=== PATIENT | female | born 1940 | race Caucasian/White ===

== ENCOUNTER 2019-07-07 07:08 | Emergency (ER) | payer MEDICARE ==
[~2019-07-07] VITALS: Ht 165.1 cm; Wt 75.0 kg
[2019-07-07 07:20] VITALS: BP 150/84
[2019-07-07] MEDS ORDERED: GLIM1TAB7 PO (07:26)
[2019-07-07] MEDS ORDERED: FAMO-79 PO (07:26)
[2019-07-07] MEDS ORDERED: ASPI-496 PO (07:26)
[2019-07-07] MEDS ORDERED: LOVA40TA2 PO (07:26)
[2019-07-07] MEDS ORDERED: BISA-49 PO (07:26)
[2019-07-07] MEDS ORDERED: SERT50TA28 PO (07:26)
[2019-07-07] MEDS ORDERED: ACET325T14 PO (07:26)
[2019-07-07] MEDS ORDERED: LEVO200T5 PO (07:26)
[2019-07-07] MEDS ORDERED: GABA300C10 PO (07:26)
[2019-07-07] MEDS ORDERED: ONDA4TAB7 PO (07:26)
[2019-07-07] MEDS ORDERED: METH750T87 PO (07:26)
[2019-07-07] MEDS ORDERED: LIDOCAINE 2%, 10ML INFIL ONE (08:00)
[2019-07-07] MEDS ORDERED: LIDOCAINE-MPF 2% ,5ML ONE (08:08)
--- NOTE | 2019-07-07 08:32 | NUR ---
ER JENI WARE AT BEDSIDE FOR EVALUATION
[2019-07-07 08:33] LABS: BASOPHILS # (AUTO) 0.05 x10^3/uL (0-0.1); BASOPHILS % (AUTO) 1 % (0-1); EOSINOPHILS # (AUTO) 0.15 x10^3/uL (0-0.4); EOSINOPHILS % (AUTO) 2 % (1-7); LYMPHOCYTES # (AUTO) 2.15 x10^3/uL (1-3.4); LYMPHOCYTES % (AUTO) 25 % (22-44); MD NO; MEAN CORPUSCULAR HEMOGLOBIN 33.6 pg (27.0-34.8); MEAN CORPUSCULAR HGB CONC 33.3 g/dL (32.4-35.8); MEAN CORPUSCULAR VOLUME 100.8 fL (80-100); MEAN PLATELET VOLUME 7.3 fL (7.4-10.4); MONOCYTES # (AUTO) 0.54 x10^3/uL (0.2-0.8); MONOCYTES % (AUTO) 6 % (2-9); NEUTROPHILS # (AUTO) 5.78 x10^3/uL (1.8-6.8); NEUTROPHILS % (AUTO) 67 % (42-75); PLATELET COUNT 262 x10^3/uL (130-400); RED BLOOD COUNT 3.87 x10^6/uL (3.82-5.3); RED CELL DISTRIBUTION WIDTH 13.7 % (9.6-15.2)
[2019-07-07 08:37] LABS: ALANINE AMINOTRANSFERASE 29 U/L (12-78); ALBUMIN 3.1 g/dL (3.4-5.0); CALCIUM 8.9 mg/dL (8.5-10.1); CHLORIDE 106 mmol/L (98-107); CREATININE 0.93 mg/dL (0.55-1.02)
[2019-07-07 08:39] LABS: ALKALINE PHOSPHATASE 46 U/L (45-117); BILIRUBIN,TOTAL 0.4 mg/dL (0.2-1.0); TOTAL PROTEIN 7.1 g/dL (6.4-8.2)
--- NOTE | 2019-07-07 08:58 | NUR ---
REPORT FROM ALEXA LAI. PT CARE ASSUMED.
[2019-07-07 08:59] LABS: ANION GAP 9 mmol/L (5-15)
[2019-07-07] MEDS ORDERED: GABAPENTIN 300 MG CAPSULE ONE (10:48)
[2019-07-07] MEDS ORDERED: GABAPENTIN 300 MG CAPSULE PO ONE (12:00)
== END 2019-07-07 11:05 | disposition home or self-care (01) ==
LOC: ED 08:48
DX: M54.42 Lumbago with sciatica, left side (principal); E11.9 Type 2 diabetes mellitus without complications
CPT/HCPCS: 20552; 36415; 71045; 80053; 85025; 93005; 99285; J2001; 99284

== ENCOUNTER 2019-08-17 23:54 | Inpatient (IN) | payer MEDICARE ==
[~2019-08-17] VITALS: Ht 165.1 cm; Wt 79.3 kg
[~2019-08-17 23:54] MED LIST: ACET325T14 PO; ASPI-496 PO; BISA-49 PO; FAMO-79 PO; GABA300C10 PO; GLIM1TAB7 PO; LEVO200T5 PO; LOVA40TA2 PO; METH750T87 PO; ONDA4TAB7 PO; SERT50TA28 PO
[2019-08-18 00:35] LABS: BASOPHILS # (AUTO) 0.08 x10^3/uL (0-0.1); BASOPHILS % (AUTO) 1 % (0-1); EOSINOPHILS # (AUTO) 0.25 x10^3/uL (0-0.4); EOSINOPHILS % (AUTO) 3 % (1-7); LYMPHOCYTES # (AUTO) 2.58 x10^3/uL (1-3.4); LYMPHOCYTES % (AUTO) 33 % (22-44); MD NO; MEAN CORPUSCULAR HEMOGLOBIN 33.8 pg (27.0-34.8); MEAN CORPUSCULAR VOLUME 99.5 fL (80-100); MEAN PLATELET VOLUME 7.4 fL (7.4-10.4); MONOCYTES % (AUTO) 6 % (2-9); NEUTROPHILS # (AUTO) 4.52 x10^3/uL (1.8-6.8); NEUTROPHILS % (AUTO) 57 % (42-75); PLATELET COUNT 258 x10^3/uL (130-400); RED BLOOD COUNT 3.91 x10^6/uL (3.82-5.3); RED CELL DISTRIBUTION WIDTH 13.3 % (9.6-15.2)
[2019-08-18 00:48] LABS: ALANINE AMINOTRANSFERASE 31 U/L (12-78); ALBUMIN 3.3 g/dL (3.4-5.0); ANION GAP 7 mmol/L (5-15); CALCIUM 8.9 mg/dL (8.5-10.1); CHLORIDE 109 mmol/L (98-107); CREATININE 0.95 mg/dL (0.55-1.02)
[2019-08-18 00:51] LABS: ALKALINE PHOSPHATASE 43 U/L (45-117); BILIRUBIN,TOTAL 0.3 mg/dL (0.2-1.0); TOTAL PROTEIN 7.1 g/dL (6.4-8.2)
--- NOTE | 2019-08-18 00:51 | NUR ---
BREAK RN: STRAIGHT CATH DONE, ALL CLOTHING REMOVED, PT CHANGED INTO HOSPITAL GOWN. DAUGHTER AT BEDSIDE. DAUGHTER TOOK PT'S PURSE. BELONGINGS LEFT ARE CLOTHING AND CANE, BAG OF MEDICATIONS. SHE IS WEARING GLASSES. NO HEARING AIDS. REPORT TO PRIMARY RN, NERIS
--- NOTE | 2019-08-18 01:01 | NUR ---
DEYSI ABARCA [phone]
[2019-08-18 01:18] LABS: MICROSCOPIC AUTO
[2019-08-18 01:22] LABS: CULTURE INDICATED? YES
[2019-08-18] MEDS ORDERED: CEFTRIAXONE PMX 1GM/50ML 50 ML IVPB ONE (01:30)
[2019-08-18] MEDS ORDERED: HYDROmorphone 1 MG/ML, 1ML INJ IV ONE (02:00)
[2019-08-18] MEDS ORDERED: CEFTRIAXONE PMX 1GM/50ML 50 ML ONE (02:14)
[2019-08-18] MEDS ORDERED: HYDROmorphone 1 MG/ML, 1ML INJ ONE (02:14)
--- NOTE | 2019-08-18 03:39 | NUR ---
Report called to Lexis [facility]U
[2019-08-18] MEDS ORDERED: ONDANSETRON 2MG/ML, 2ML IVPush PRN (04:00)
[2019-08-18] MEDS ORDERED: POLYETHYLENE GLYCOL 17 GM PACKET PO PRN (04:00)
[2019-08-18] MEDS ORDERED: ACETAMINOPHEN 325 MG TABLET PO PRN (04:00)
[2019-08-18] MEDS ORDERED: BISACODYL 10 MG SUPP PR PRN (04:00)
[2019-08-18] MEDS ORDERED: hydrALAzine 20 MG/ML, 1ML IVPush PRN (04:00)
[2019-08-18 04:16] VITALS: BP 135/89
[2019-08-18 04:51] LABS: FREE T4 (FREE THYROXINE) 0.63 ng/dL (0.76-1.46)
[2019-08-18] MEDS: morphine SULFATE 10 MG/ML, 1ML IVPush PRN ×5 (05:37→18:47)
[2019-08-18] MEDS: LACTATED RINGERS 1,000 ML IV SCH (05:37)
[2019-08-18] MEDS: LEVOTHYROXINE 200 MCG TABLET PO SCH (05:37)
[2019-08-18] MEDS: INSULIN LISPRO 100 UNITS/ML, PEN SQ-INSULIN SCH ×4 (07:00→20:48)
[2019-08-18 08:06] VITALS: BP 151/86
[2019-08-18] MEDS: INSULIN GLARGINE 100 UNITS/ML, PEN SQ-INSULIN SCH (08:58)
[2019-08-18] MEDS: FAMOTIDINE 20 MG TABLET PO SCH (08:59)
[2019-08-18] MEDS: SENNA/DOCUSATE TABLET PO SCH (08:59)
[2019-08-18] MEDS: SERTRALINE 50MG TABLET PO SCH (08:59)
[2019-08-18] MEDS: METHOCARBAMOL 500 MG TABLET PO PRN (10:49)
[2019-08-18] MEDS: GABAPENTIN 300 MG CAPSULE PO PRN ×2 (10:49→23:01)
[2019-08-18 13:49] VITALS: BP 141/85
[2019-08-18 19:00] VITALS: BP 135/84
[2019-08-18] MEDS: LOVASTATIN 40 MG TABLET PO SCH (20:17)
[2019-08-18] MEDS: HYDROcodone/APAP 5/325 TABLET PO PRN (22:06)
[2019-08-19] VITALS: BP 149/89
[2019-08-19] MEDS: LACTATED RINGERS 1,000 ML IV SCH
[2019-08-19] MEDS: HYDROcodone/APAP 5/325 TABLET PO PRN ×5 (02:12→21:43)
[2019-08-19] MEDS: CEFTRIAXONE PMX 1GM/50ML 50 ML IV SCH (02:16)
[2019-08-19] MEDS: METHOCARBAMOL 500 MG TABLET PO PRN ×2 (02:56→11:03)
[2019-08-19 05:05] LABS: BASOPHILS # (AUTO) 0.04 x10^3/uL (0-0.1); BASOPHILS % (AUTO) 1 % (0-1); EOSINOPHILS # (AUTO) 0.31 x10^3/uL (0-0.4); EOSINOPHILS % (AUTO) 4 % (1-7); LYMPHOCYTES # (AUTO) 2.56 x10^3/uL (1-3.4); LYMPHOCYTES % (AUTO) 31 % (22-44); MD NO; MEAN CORPUSCULAR HEMOGLOBIN 33.3 pg (27.0-34.8); MEAN CORPUSCULAR HGB CONC 33.6 g/dL (32.4-35.8); MEAN CORPUSCULAR VOLUME 99.1 fL (80-100); MEAN PLATELET VOLUME 7.8 fL (7.4-10.4); MONOCYTES % (AUTO) 6 % (2-9); NEUTROPHILS # (AUTO) 4.82 x10^3/uL (1.8-6.8); NEUTROPHILS % (AUTO) 59 % (42-75); PLATELET COUNT 258 x10^3/uL (130-400); RED BLOOD COUNT 4.13 x10^6/uL (3.82-5.3)
[2019-08-19 05:15] LABS: ANION GAP 7 mmol/L (5-15); CALCIUM 9.3 mg/dL (8.5-10.1); CHLORIDE 104 mmol/L (98-107)
[2019-08-19 05:16] LABS: CREATININE 0.89 mg/dL (0.55-1.02)
[2019-08-19] MEDS: LEVOTHYROXINE 200 MCG TABLET PO SCH (05:54)
[2019-08-19 07:01] VITALS: BP 134/88
[2019-08-19] MEDS: SENNA/DOCUSATE TABLET PO SCH (08:03)
[2019-08-19] MEDS: FAMOTIDINE 20 MG TABLET PO SCH (08:03)
[2019-08-19] MEDS: GABAPENTIN 300 MG CAPSULE PO PRN ×2 (08:03→19:53)
[2019-08-19] MEDS: INSULIN LISPRO 100 UNITS/ML, PEN SQ-INSULIN SCH ×4 (08:03→21:01)
[2019-08-19] MEDS: SERTRALINE 50MG TABLET PO SCH (08:03)
[2019-08-19] MEDS: INSULIN GLARGINE 100 UNITS/ML, PEN SQ-INSULIN SCH (08:04)
[2019-08-19 13:30] VITALS: BP 126/80
[2019-08-19] MEDS ORDERED: ONDANSETRON ODT 4 MG ONE (17:32)
[2019-08-19 19:35] VITALS: BP 127/85
[2019-08-19] MEDS: LOVASTATIN 40 MG TABLET PO SCH (19:53)
[2019-08-20 00:51] VITALS: BP 146/74
[2019-08-20] MEDS: CEFTRIAXONE PMX 1GM/50ML 50 ML IV SCH (01:55)
[2019-08-20] MEDS: HYDROcodone/APAP 5/325 TABLET PO PRN ×4 (02:55→17:30)
[2019-08-20] MEDS: GABAPENTIN 300 MG CAPSULE PO PRN ×2 (04:07→23:07)
[2019-08-20] MEDS: LEVOTHYROXINE 200 MCG TABLET PO SCH (04:10)
[2019-08-20 06:22] LABS: BASOPHILS # (AUTO) 0.04 x10^3/uL (0-0.1); BASOPHILS % (AUTO) 1 % (0-1); EOSINOPHILS # (AUTO) 0.25 x10^3/uL (0-0.4); EOSINOPHILS % (AUTO) 3 % (1-7); LYMPHOCYTES # (AUTO) 2.39 x10^3/uL (1-3.4); LYMPHOCYTES % (AUTO) 30 % (22-44); MD NO; MEAN CORPUSCULAR HEMOGLOBIN 33.5 pg (27.0-34.8); MEAN CORPUSCULAR HGB CONC 33.9 g/dL (32.4-35.8); MEAN CORPUSCULAR VOLUME 98.8 fL (80-100); MEAN PLATELET VOLUME 7.7 fL (7.4-10.4); MONOCYTES # (AUTO) 0.54 x10^3/uL (0.2-0.8); MONOCYTES % (AUTO) 7 % (2-9); NEUTROPHILS # (AUTO) 4.69 x10^3/uL (1.8-6.8); NEUTROPHILS % (AUTO) 59 % (42-75); PLATELET COUNT 274 x10^3/uL (130-400); RED BLOOD COUNT 4.14 x10^6/uL (3.82-5.3); RED CELL DISTRIBUTION WIDTH 12.9 % (9.6-15.2)
[2019-08-20 06:31] LABS: ANION GAP 10 mmol/L (5-15); CALCIUM 9.5 mg/dL (8.5-10.1); CHLORIDE 101 mmol/L (98-107)
[2019-08-20 06:47] VITALS: BP 121/75
[2019-08-20] MEDS: INSULIN LISPRO 100 UNITS/ML, PEN SQ-INSULIN SCH ×4 (07:44→20:34)
[2019-08-20] MEDS: SENNA/DOCUSATE TABLET PO SCH (07:45)
[2019-08-20] MEDS: FAMOTIDINE 20 MG TABLET PO SCH (07:45)
[2019-08-20] MEDS: SERTRALINE 50MG TABLET PO SCH (07:45)
[2019-08-20] MEDS: INSULIN GLARGINE 100 UNITS/ML, PEN SQ-INSULIN SCH (07:45)
[2019-08-20] MEDS: METHOCARBAMOL 500 MG TABLET PO PRN ×2 (10:27→23:07)
[2019-08-20 13:33] VITALS: BP 108/71
[2019-08-20 17:52] LABS: MICROSCOPIC AUTO
[2019-08-20 17:59] LABS: CULTURE INDICATED? YES
[2019-08-20 20:15] VITALS: BP 155/84
[2019-08-20] MEDS: LOVASTATIN 40 MG TABLET PO SCH (20:32)
[2019-08-21 00:30] VITALS: BP 128/79
[2019-08-21] MEDS: CEFTRIAXONE PMX 1GM/50ML 50 ML IV SCH (02:23)
[2019-08-21] MEDS: HYDROcodone/APAP 5/325 TABLET PO PRN ×2 (02:54→07:49)
[2019-08-21] MEDS: LEVOTHYROXINE 200 MCG TABLET PO SCH (05:26)
[2019-08-21] MEDS: morphine SULFATE 10 MG/ML, 1ML IVPush PRN (05:27)
[2019-08-21 05:33] LABS: BASOPHILS # (AUTO) 0.04 x10^3/uL (0-0.1); BASOPHILS % (AUTO) 1 % (0-1); EOSINOPHILS # (AUTO) 0.21 x10^3/uL (0-0.4); EOSINOPHILS % (AUTO) 3 % (1-7); LYMPHOCYTES # (AUTO) 2.47 x10^3/uL (1-3.4); LYMPHOCYTES % (AUTO) 30 % (22-44); MD NO; MEAN CORPUSCULAR HEMOGLOBIN 34.2 pg (27.0-34.8); MEAN CORPUSCULAR HGB CONC 34.5 g/dL (32.4-35.8); MEAN CORPUSCULAR VOLUME 99.1 fL (80-100); MONOCYTES # (AUTO) 0.59 x10^3/uL (0.2-0.8); MONOCYTES % (AUTO) 7 % (2-9); NEUTROPHILS # (AUTO) 4.83 x10^3/uL (1.8-6.8); NEUTROPHILS % (AUTO) 59 % (42-75); PLATELET COUNT 266 x10^3/uL (130-400); RED BLOOD COUNT 4.06 x10^6/uL (3.82-5.3); RED CELL DISTRIBUTION WIDTH 12.7 % (9.6-15.2)
[2019-08-21 05:46] LABS: CHLORIDE 102 mmol/L (98-107)
[2019-08-21 05:51] LABS: ANION GAP 8 mmol/L (5-15); CALCIUM 9.6 mg/dL (8.5-10.1); CREATININE 0.97 mg/dL (0.55-1.02)
[2019-08-21] MEDS: INSULIN LISPRO 100 UNITS/ML, PEN SQ-INSULIN SCH ×2 (07:48→11:28)
[2019-08-21] MEDS: INSULIN GLARGINE 100 UNITS/ML, PEN SQ-INSULIN SCH (07:48)
[2019-08-21] MEDS: SENNA/DOCUSATE TABLET PO SCH (07:49)
[2019-08-21] MEDS: SERTRALINE 50MG TABLET PO SCH (07:49)
[2019-08-21] MEDS: FAMOTIDINE 20 MG TABLET PO SCH (07:49)
[2019-08-21 09:53] VITALS: BP 119/82
[2019-08-21] MEDS ORDERED: CEFD300C37 PO (11:59)
== END 2019-08-21 15:16 | disposition home or self-care (01) | DRG 552 ==
LOC: ED 08-18 00:48 → EDIP 08-18 03:20 → 3N 08-18 04:25
PROVIDERS: ADMIT Family Medicine; ATTEND Hospitalist
PROC: 0T9B70Z Drainage of Bladder with Drainage Device, Via Natural or Artificial Opening (ICD-10-PCS; principal; 2019-08-18)
DX: M48.061 Spinal stenosis, lumbar region without neurogenic claudication (principal); N12 Tubulo-interstitial nephritis, not specified as acute or chronic; M43.16 Spondylolisthesis, lumbar region; E11.41 Type 2 diabetes mellitus with diabetic mononeuropathy; E78.5 Hyperlipidemia, unspecified; E03.9 Hypothyroidism, unspecified; I10 Essential (primary) hypertension; K21.9 Gastro-esophageal reflux disease without esophagitis; M54.16 Radiculopathy, lumbar region; K59.09 Other constipation; M54.30 Sciatica, unspecified side; Z96.642 Presence of left artificial hip joint; Z96.652 Presence of left artificial knee joint; G89.29 Other chronic pain; F32.9 Major depressive disorder, single episode, unspecified; Z80.3 Family history of malignant neoplasm of breast; Z87.440 Personal history of urinary (tract) infections; Z79.84 Long term (current) use of oral hypoglycemic drugs
CPT/HCPCS: 36415; 72141; 72148; 80048; 80053; 81001; 82607; 82962; 83036; 84439; 84443; 85025; 87040; 87077; 87086; 87186; 96365; G0378; J0696; J1170; J2405; J1815; J2270; J7120

== ENCOUNTER 2019-10-20 18:48 | Emergency (ER) | payer MEDICARE ==
[~2019-10-20] VITALS: Ht 165.1 cm; Wt 81.6 kg
[~2019-10-20 18:48] MED LIST changes: +CEFD300C37 PO
--- NOTE | 2019-10-20 19:13 | NUR ---
PT TO ED WITH C/O BACK PAIN. REPORTS SHE IS ALMOST RUNNING OUT OF PAIN MEDICATIONS. REPORTS CHRONIC BACK PAIN THAT RADIATES DOWN LEFT LEG. REPORTS GENERALIZED ABDOMINAL PAIN THAT STARTED TWO DAYS AGO.
--- NOTE | 2019-10-20 19:30 | NUR ---
PROVIDER AT BEDSIDE.
[2019-10-20] MEDS ORDERED: SODIUM CHLORIDE FLUSH 10ML SYR IVF ONE (20:00)
--- NOTE | 2019-10-20 20:00 | NUR ---
PT TO CT.
[2019-10-20 20:32] LABS: BASOPHILS # (AUTO) 0.06 x10^3/uL (0-0.1); BASOPHILS % (AUTO) 1 % (0-1); EOSINOPHILS # (AUTO) 0.21 x10^3/uL (0-0.4); EOSINOPHILS % (AUTO) 3 % (1-7); LYMPHOCYTES # (AUTO) 3.04 x10^3/uL (1-3.4); LYMPHOCYTES % (AUTO) 39 % (22-44); MD NO; MEAN CORPUSCULAR HEMOGLOBIN 33.5 pg (27.0-34.8); MEAN CORPUSCULAR HGB CONC 33.7 g/dL (32.4-35.8); MEAN CORPUSCULAR VOLUME 99.3 fL (80-100); MONOCYTES # (AUTO) 0.44 x10^3/uL (0.2-0.8); MONOCYTES % (AUTO) 6 % (2-9); NEUTROPHILS # (AUTO) 4.09 x10^3/uL (1.8-6.8); NEUTROPHILS % (AUTO) 52 % (42-75); PLATELET COUNT 274 x10^3/uL (130-400); RED CELL DISTRIBUTION WIDTH 13.8 % (9.6-15.2)
[2019-10-20 20:40] LABS: ALANINE AMINOTRANSFERASE 32 U/L (12-78); ALBUMIN 3.6 g/dL (3.4-5.0); ANION GAP 9 mmol/L (5-15); CALCIUM 8.9 mg/dL (8.5-10.1); CHLORIDE 105 mmol/L (98-107)
[2019-10-20 20:43] LABS: ALKALINE PHOSPHATASE 42 U/L (45-117); BILIRUBIN,TOTAL 0.8 mg/dL (0.2-1.0); CREATININE 1.12 mg/dL (0.55-1.02); TOTAL PROTEIN 7.3 g/dL (6.4-8.2)
[2019-10-20 21:19] LABS: MICROSCOPIC AUTO
[2019-10-20 22:27] VITALS: BP 141/88
[2019-10-20] MEDS ORDERED: OMNIPAQUE 350 MG/ML, 100ML BOTTLE ONE (23:05)
== END 2019-10-20 22:29 | disposition home or self-care (01) ==
LOC: ED 21:43
DX: N30.00 Acute cystitis without hematuria (principal); M54.5 Low back pain; E11.9 Type 2 diabetes mellitus without complications; E78.00 Pure hypercholesterolemia, unspecified; Z90.89 Acquired absence of other organs; Z90.49 Acquired absence of other specified parts of digestive tract
CPT/HCPCS: 36415; 74177; 80053; 81001; 83690; 85025; 87086; 99285; Q9967

== ENCOUNTER 2019-11-01 14:01 | Emergency (ER) | payer MEDICARE ==
--- NOTE | 2019-11-01 15:03 | NUR ---
THIS IS S A 79 YO FEMALE WHO PRESENTS TO THE ER C/O URINARY PAIN/URGENCY AND ALVARADO SINCE THIS MORNING. PT REPORTS ALVARADO IS NOW RESOLVED. PT WAS SEEN AT BEFORE COMING TO ER. PT UNSURE OF ALL THE TESTS DONE AT . PT AO X 4. SKIN WARM AND DRY. RESP EVEN AND UNLABORED. JOHNATHON HOYOS WAS AT BEDSIDE FOR EVAL. OKAY TO PROVIDE PT WITH WATER. PT AWARE WE NEED URINE SAMPLE.
--- NOTE | 2019-11-01 15:32 | NUR ---
PT AWARE WE NEED URINE SAMPLE. PT REQUESTED AND WAS PROVIDED WITH SECOND GLASS OF WATER WITH OKAY BY ERMD LAW. PT AO X 4. SKIN PINK, WARM AND DRY. RESP EVEN AND UNLABORED. CALL LIGHT WITHIN REACH. WILL CONT TO MONITOR PT.
[2019-11-01 15:44] LABS: BASOPHILS # (AUTO) 0.08 x10^3/uL (0-0.1); BASOPHILS % (AUTO) 1 % (0-1); EOSINOPHILS # (AUTO) 0.17 x10^3/uL (0-0.4); EOSINOPHILS % (AUTO) 2 % (1-7); LYMPHOCYTES # (AUTO) 2.86 x10^3/uL (1-3.4); LYMPHOCYTES % (AUTO) 34 % (22-44); MD NO; MEAN CORPUSCULAR HEMOGLOBIN 33.4 pg (27.0-34.8); MEAN CORPUSCULAR HGB CONC 33.7 g/dL (32.4-35.8); MEAN CORPUSCULAR VOLUME 99.3 fL (80-100); MEAN PLATELET VOLUME 7.8 fL (7.4-10.4); MONOCYTES # (AUTO) 0.46 x10^3/uL (0.2-0.8); MONOCYTES % (AUTO) 5 % (2-9); NEUTROPHILS # (AUTO) 4.82 x10^3/uL (1.8-6.8); NEUTROPHILS % (AUTO) 58 % (42-75); PLATELET COUNT 242 x10^3/uL (130-400); RED BLOOD COUNT 4.26 x10^6/uL (3.82-5.3); RED CELL DISTRIBUTION WIDTH 13.9 % (9.6-15.2)
[2019-11-01 15:49] LABS: ANION GAP 6 mmol/L (5-15); CALCIUM 9.3 mg/dL (8.5-10.1); CHLORIDE 105 mmol/L (98-107)
[2019-11-01 15:50] LABS: ALANINE AMINOTRANSFERASE 35 U/L (12-78); ALBUMIN 3.7 g/dL (3.4-5.0)
[2019-11-01 15:51] LABS: ALKALINE PHOSPHATASE 43 U/L (45-117); BILIRUBIN,TOTAL 0.5 mg/dL (0.2-1.0); TOTAL PROTEIN 7.5 g/dL (6.4-8.2)
[2019-11-01 16:15] LABS: MICROSCOPIC AUTO
--- NOTE | 2019-11-01 16:17 | NUR ---
BREAK RN. PT'S POST VOID RESIDUAL IS 311, WILL LET ERMD KNOW.
[2019-11-01] MEDS ORDERED: CEFTRIAXONE PMX 1GM/50ML 50 ML IV ONE (17:00)
[2019-11-01] MEDS ORDERED: PLEASE ENTER HEIGHT AND WEIGHT MC SCH (17:00)
[2019-11-01] MEDS ORDERED: PLEASE ENTER WEIGHT MC SCH (17:01)
--- NOTE | 2019-11-01 17:45 | NUR ---
LEG BAG PLACED AND LARGE BAG GIVEN TO PT PER PT'S REQUEST. PT EDUCATED ON IMPORTANCE OF CLEANING TIP OF CATHETER BACK FOR AT LEAST 15 SECONDS WITH AN ALCOHOL SWAB PRIOR TO SWAPPING BAGS. PT EDUCATED ON HOW TO EMPTY BACK. DAUGHTER WHO IS AN RN IS AT BEDSIDE. PT AND RN VERBALIZE UNDERSTANDING OF CATHETER CARE AND DEMONSTRATE SKILLS TO THIS RN. PT PROVIDED WITH PAPERWORK. CALL LIGHT WITHIN REACH. WILL CONT TO MONITOR PT.
[2019-11-01 18:10] VITALS: BP 135/63
== END 2019-11-01 18:12 | disposition home or self-care (01) ==
LOC: ED 16:29
DX: N30.00 Acute cystitis without hematuria (principal); R33.9 Retention of urine, unspecified; R51 Headache; R10.30 Lower abdominal pain, unspecified; I10 Essential (primary) hypertension; E11.9 Type 2 diabetes mellitus without complications; Z90.89 Acquired absence of other organs; Z90.49 Acquired absence of other specified parts of digestive tract; E78.00 Pure hypercholesterolemia, unspecified
CPT/HCPCS: 36415; 51702; 80053; 81001; 83690; 85025; 87086; 99284

== ENCOUNTER → 2019-12-11 | Outpatient (CLI) | payer MEDICARE ==
[2019-12-11 15:53] LABS: BASOPHILS # (AUTO) 0.03 x10^3/uL (0-0.1); BASOPHILS % (AUTO) 0 % (0-1); EOSINOPHILS # (AUTO) 0.12 x10^3/uL (0-0.4); EOSINOPHILS % (AUTO) 1 % (1-7); LYMPHOCYTES # (AUTO) 2.52 x10^3/uL (1-3.4); LYMPHOCYTES % (AUTO) 26 % (22-44); MD NO; MEAN CORPUSCULAR HEMOGLOBIN 33.3 pg (27.0-34.8); MEAN CORPUSCULAR HGB CONC 32.8 g/dL (32.4-35.8); MEAN CORPUSCULAR VOLUME 101.6 fL (80-100); MEAN PLATELET VOLUME 7.7 fL (7.4-10.4); MONOCYTES # (AUTO) 0.51 x10^3/uL (0.2-0.8); MONOCYTES % (AUTO) 5 % (2-9); NEUTROPHILS # (AUTO) 6.67 x10^3/uL (1.8-6.8); NEUTROPHILS % (AUTO) 68 % (42-75); PLATELET COUNT 311 x10^3/uL (130-400); RED BLOOD COUNT 4.64 x10^6/uL (3.82-5.3); RED CELL DISTRIBUTION WIDTH 13.4 % (9.6-15.2)
[2019-12-11 15:55] LABS: CHLORIDE 103 mmol/L (98-107)
[2019-12-11 17:03] LABS: ALANINE AMINOTRANSFERASE 39 U/L (12-78); ALBUMIN 4.4 g/dL (3.4-5.0); ALKALINE PHOSPHATASE 56 U/L (45-117); ANION GAP 10 mmol/L (5-15); BILIRUBIN,TOTAL 0.8 mg/dL (0.2-1.0); CALCIUM 9.4 mg/dL (8.5-10.1); CHOL/HDL RATIO 4.1; CHOLESTEROL, TOTAL 208 mg/dL (140-239); FREE T4 (FREE THYROXINE) 0.75 ng/dL (0.76-1.46); HDL CHOL % 25 % (28-40); HDL CHOLESTEROL (DIRECT) 51 mg/dL (40-60); LDL CHOLESTEROL,CALCULATED 113 mg/dL (54-169); LDL/HDL RATIO 2.2 (0.5-3.0); TOTAL PROTEIN 8.3 g/dL (6.4-8.2); TRIGLYCERIDES 218 mg/dL (50-200); VLDL CHOLESTEROL 44 mg/dL (0-25)
== END | disposition home or self-care (01) ==
LOC: CFH 13:37
PROVIDERS: ATTEND Nurse Practitioner Family
DX: E03.4 Atrophy of thyroid (acquired) (principal); E11.9 Type 2 diabetes mellitus without complications; E78.2 Mixed hyperlipidemia; F32.0 Major depressive disorder, single episode, mild; M43.16 Spondylolisthesis, lumbar region; M54.5 Low back pain; R03.0 Elevated blood-pressure reading, without diagnosis of hypertension; Z79.4 Long term (current) use of insulin
CPT/HCPCS: 36415; 80053; 80061; 82043; 82570; 83036; 84439; 84443; 84481; 85025

== ENCOUNTER 2020-01-04 13:57 | Emergency (ER) | payer MEDICARE ==
[~2020-01-04] VITALS: Ht 165.1 cm; Wt 78.0 kg
[2020-01-04 14:03] VITALS: BP 118/69
--- NOTE | 2020-01-04 14:51 | NUR ---
ERP AT BEDSIDE, PT TO IMAGING.
--- NOTE | 2020-01-04 15:29 | NUR ---
STRAIGHT CATH OBTAINED, TOTAL OUT APPROX 150ML. PT TOLERATED WELL. DENIES ANY NEEDS AT THIS TIME, CALL LIGHT IN REACH.
[2020-01-04 15:43] LABS: MICROSCOPIC AUTO
[2020-01-04] MEDS ORDERED: OXYcodone/APAP 5/325MG TABLET ONE (16:37)
--- NOTE | 2020-01-04 16:39 | NUR ---
MEDICATINOS REQUESTED. PT MEDICATED WITH AVAILABLE MEDICATIONS PER MAR, COMPUTER IN ROOM NOT WORKING AT THIS TIME FOR DOCUMENTATION. PT DENIES ANY FURTHER NEEDS AT THIS TIME, CALL LIGHT IN REACH.
[2020-01-04] MEDS ORDERED: OXYcodone/APAP 5/325MG TABLET PO ONE (17:00)
[2020-01-04] MEDS ORDERED: METHYLNALTREXONE 12 MG/0.6 ML SYR SQ ONE (17:00)
[2020-01-04] MEDS ORDERED: PINK LADY ENEMA 490 ML BOTTLE PR ONE (17:00)
--- NOTE | 2020-01-04 17:15 | NUR ---
PT HAD A LARGE LOOSE BOWEL MOVEMENT IN BEDSIDE COMMODE. DENIES ANY FURTHER NEEDS AT THIS TIME, CALL LIGHT IN REACH.
== END 2020-01-04 17:45 | disposition home or self-care (01) ==
LOC: ED 17:00
DX: K59.00 Constipation, unspecified (principal); M54.5 Low back pain; R10.9 Unspecified abdominal pain; I10 Essential (primary) hypertension; E11.9 Type 2 diabetes mellitus without complications; E78.00 Pure hypercholesterolemia, unspecified
CPT/HCPCS: 74018; 81001; 87086; 99284

== ENCOUNTER 2020-06-05 22:15 | Emergency (ER) | payer MEDICARE ==
[~2020-06-05] VITALS: Ht 165.1 cm; Wt 74.0 kg
--- NOTE | 2020-06-05 22:15 | NUR ---
INITIAL PT CONTACT. PT PRESENTS TO ED VIA EMS FOLLOWING A GLF. PT STATES SHE "NORMALLY USES A WALKER TO GET AROUND AND WAS GETTING INTO THE CAR AND TRIPPED". PT DENIES LOSS OF CONCIOUSNESS OR NECK PAIN. PT DID HIT HER HEAD AND HAS A HEMATOMA PRESENT ON THE POSTERIOR ASPECT OF HER HEAD. NO N/V OR VISUAL CHANGES, PT DENIES BLOOD THINNER USE. PT SITTING UPRIGHT ON GURNEY, NAD, VSS. DAUGHTER AT BEDSIDE. PT DENIES ANY NEEDS AT THIS TIME. CALL LIGHT AND PERSONAL BELONGINGS WITHIN REACH.
--- NOTE | 2020-06-05 22:26 | NUR ---
PT TO XRAY
--- NOTE | 2020-06-05 23:30 | NUR ---
PT TO IMAGING
--- NOTE | 2020-06-05 23:50 | NUR ---
PT RETURNED FROM IMAGING
--- NOTE | 2020-06-06 00:01 | NUR ---
PT SUPINE ON GURNEY, NAD, VSS. PT RESTING COMFORTABLY WITH EYES CLOSED. PT PROVIDED ICE PACK PER REQUEST. PT DENIES ANY ADDITIONAL NEEDS AT THIS TIME. DAUGHTER AT BEDSIDE.
[2020-06-06] MEDS ORDERED: HYDROcodone/APAP 5/325 TABLET ONE (00:14)
--- NOTE | 2020-06-06 00:20 | NUR ---
ERP AT BEDSIDE
[2020-06-06 00:21] VITALS: BP 153/68
--- NOTE | 2020-06-06 00:25 | NUR ---
PT REQUESTING PAIN MEDICATION. "AFTER THEY MOVED ME FOR ALL THOSE SCANS MY PAIN IS A LOT WORSE", ERP NOTIFIED AND PATIENT MEDICATED PER EMAR.
[2020-06-06] MEDS ORDERED: HYDROcodone/APAP 5/325 TABLET PO ONE (00:30)
== END 2020-06-06 00:39 | disposition home or self-care (01) ==
LOC: ED 23:50
DX: S09.90XA Unspecified injury of head, initial encounter (principal); W01.0XXA Fall on same level from slipping, tripping and stumbling without subsequent striking against object, initial encounter; E03.9 Hypothyroidism, unspecified; Y93.89 Activity, other specified; Y92.009 Unspecified place in unspecified non-institutional (private) residence as the place of occurrence of the external cause; Y99.8 Other external cause status
CPT/HCPCS: 70450; 72110; 72192; 72220; 99285

== ENCOUNTER → 2020-09-20 | Outpatient (CLI) | payer MEDICARE ==
[2020-09-20 16:35] LABS: BASOPHILS % (AUTO) 1 % (0-1); EOSINOPHILS % (AUTO) 2 % (1-7); LYMPHOCYTES % (AUTO) 31 % (22-44); MEAN CORPUSCULAR HEMOGLOBIN 31.4 pg (27.0-34.8); MEAN CORPUSCULAR HGB CONC 33.7 g/dL (32.4-35.8); MEAN PLATELET VOLUME 7.5 fL (7.4-10.4); MONOCYTES % (AUTO) 7 % (2-9); NEUTROPHILS % (AUTO) 59 % (42-75); PLATELET COUNT 221 x10^3/uL (130-400); RED CELL DISTRIBUTION WIDTH 13.6 % (9.6-15.2)
[2020-09-20 16:37] LABS: MD NO
[2020-09-20 16:46] LABS: ALBUMIN 3.6 g/dL (3.4-5.0); ANION GAP 8 mmol/L (5-15); CALCIUM 9.1 mg/dL (8.5-10.1); CHLORIDE 105 mmol/L (98-107)
[2020-09-20 16:56] LABS: ALANINE AMINOTRANSFERASE 18 U/L (12-78); ALKALINE PHOSPHATASE 67 U/L (45-117); BILIRUBIN,TOTAL 0.4 mg/dL (0.2-1.0); CHOL/HDL RATIO 3.1; CHOLESTEROL, TOTAL 148 mg/dL (140-239); CREATININE 0.86 mg/dL (0.55-1.02); FREE T4 (FREE THYROXINE) 1.24 ng/dL (0.76-1.46); HDL CHOL % 32 % (28-40); HDL CHOLESTEROL (DIRECT) 48 mg/dL (40-60); LDL CHOLESTEROL,CALCULATED 69 mg/dL (54-169); LDL/HDL RATIO 1.4 (0.5-3.0); TOTAL PROTEIN 7.5 g/dL (6.4-8.2); TRIGLYCERIDES 156 mg/dL (50-200); VLDL CHOLESTEROL 31 mg/dL (0-25)
== END | disposition home or self-care (01) ==
LOC: LAB 16:08
PROVIDERS: ATTEND Nurse Practitioner Family
DX: E11.41 Type 2 diabetes mellitus with diabetic mononeuropathy (principal); E03.9 Hypothyroidism, unspecified; E11.65 Type 2 diabetes mellitus with hyperglycemia; E03.4 Atrophy of thyroid (acquired); E78.2 Mixed hyperlipidemia; E78.5 Hyperlipidemia, unspecified; N18.32 Chronic kidney disease, stage 3b; F32.0 Major depressive disorder, single episode, mild; E11.22 Type 2 diabetes mellitus with diabetic chronic kidney disease
CPT/HCPCS: 36415; 80053; 80061; 83036; 84439; 84443; 84481; 85025